=== PATIENT | male | born 1970 | race Two or more races ===

== ENCOUNTER 2024-11-06 09:57 | Outpatient (AMB) | payer OTHER, SELFPAY ==
--- NOTE | 2024-11-06 10:12 | MHC.PC.OV ---
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: No Accompanied by: Self / Same As Patient Allergies No Known Allergies Allergy (Verified 11/06/24 11:18) Medication List - Last Reconciled 11/06/24 by GISSELLE Dewitt dulaglutide (Trulicity) 0.75 mg subcut QWEEK glimepiride 4 mg PO DAILY metformin 1,000 mg PO BID sildenafil (Viagra) 100 mg PO DAILY PRN Tobacco use date assessed: 11/06/24 Dental Screening Dental Screen Date: 11/06/24 Did you have a dental visit in the last 12 months?: Yes Did you have a dental problem in the last 6 months where you did not have access to dental care?: No Was dental information given to patient?: Patient has dentist HPI [facility] care HPI Details Patient is presenting to [facility]. Accompanied by girlfriend Krupa Luis Manuel, who interpreted for the patient, per his request. Previous PCP: Thiago Freeman, [facility] in [place] Last visit: 02/2024 Last PE:11/2023 Specialist: no OBGYN:n/a Past medical history: DM, erectile dysfunction Medications: Family HX: mother DM type 1, uncle DM, father DM, sister DM Problem: The patient is a 54-year-old male presenting to [facility]. Patient reports that his prior healthcare facility no longer accept his insurance. He is here with complaints of hypertension, diabetes mellitus, and hand pain and numbness. Hypertension has been noted primarily during medical visits, with blood pressure readings reaching 150/90 mmHg during this visit. The patient does not monitor blood pressure at home, and previous readings have been inconsistent, with a prior reading of 170/90 mmHg. The patient has a history of Type 2 Diabetes Mellitus, with a recent blood glucose level of 215 mg/dL and an A1c of 7.7%. He experiences diarrhea with metformin, impacting his work, and has been switched to an extended-release formulation. The patient reports hand pain and numbness, occurring approximately three times a week, which started about a year and a half ago. The symptoms include pain and inability to move the hands, which comes and goes without swelling. Muscle cramps have been reported, affecting both legs intermittently, and have been ongoing for a long time. The patient has been advised to increase hydration and start magnesium supplementation. Erectile dysfunction has been noted despite the use of sildenafil, and further evaluation of blood sugar control is planned. The patient also has significant earwax buildup in the left ear, not affecting hearing, and has been advised on ear cleaning techniques with the debrox ear cleaning kit. [facility] Medical History (Updated 11/06/24 @ 22:04 by GISSELLE Dewitt) Erectile dysfunction Diabetes mellitus Family History Mother Diabetes mellitus Maternal Uncle Diabetes mellitus Father Diabetes mellitus Sister Diabetes mellitus Other Diabetic acidosis, type I Social History Household Members: None Both parents involved: No Caregiver staying overnight: No Housing: Apartment Are you a primary managed care coordinator to a significant other at home: No Do you presently have visiting nurse or other home services: No Unable to assess alcohol history related to: Unable to respond Alcohol intake: former Patient Tobacco Use Status: Never used Tobacco e-Cigarette/Vaping Use: Never Used Second Hand Smoke Exposure: No service: No Current occupational status: employed Questionnaire PHQ-9 Over the last 2 weeks, how often have you been bothered by any of the following problems? 1. Little interest or pleasure in doing things: nearly every day 2. Feeling down, depressed, or hopeless: nearly every day 3. Trouble falling or staying asleep, or sleeping too much: nearly every day 4. Feeling tired or having little energy: several days 5. Poor appetite or overeating: several days 6. Feeling bad about yourself - or that you are a failure or have let yourself or your family down: not at all 7. Trouble concentrating on things, such as reading the newspaper or watching television: several days 8. Moving or speaking so slowly that other people could have noticed. Or the opposite - being so fidgety or restless that you have been moving around a lot more than usual: not at all 9. Thoughts that you would be better off or of hurting yourself in some way: not at all Total score: 12 Depression Screening Interpretation: Positive Depression Screening Done: Yes 64994 - PHQ-9 Billing: Yes Source: Developed by Drs. Manuel Ross, Becki Zhou, Ricky Bernstein and colleagues, with an educational sheri from [employer]. Thrive Questionnaire Date Thrive assessed: 11/06/24 I am a: Patient What is your living situation today?: I do not have a steady places to live I choose not to answer this question Within the past 12 months, did the food you bought not last and you didn't have the money to get more?: Often true Within the past 12 months, did you worry whether your food would run out before you got money to buy more?: I choose not to answer this question Do you have trouble paying for medicines?: No Do you have trouble getting transportation to medical appointments?: No Do you have trouble paying your heating and electricity bill?: No Do you have trouble taking care of your child, family member or friend?: I choose not to answer this question Do you have trouble with day-to-day activities such as bathing, preparing meals, shopping, managing finances, etc.?: No Are you currently unemployed and looking for a job?: No Are you interested in more education?: No Please select the resources that you would like help with: Housing/Penitentiary Currently or been in a relationship where the following occur: No concerns reported THRIVE Score: 2 GEORGES-7 AMB Questionnaire GEORGES-7 Date GEORGES - 7 assessed: 11/06/24 Source: Developed by Drs. Manuel Ross, Becki Zhou, Ricky Bernstein and colleagues, with an educational sheri from [employer]. Review of Systems Const Denies headache(s) and Reports lethargy Eyes Denies loss of vision ENT Denies vertigo, Denies dizziness, Denies headache(s) and Denies sore throat Card Denies chest pain, Denies leg edema and Denies lightheadedness Resp Denies cough, Denies hemoptysis and Denies wheezing GI Denies abdominal pain, Denies melena, Denies constipation, Denies diarrhea and Denies vomiting Reports change in libido, Denies dysuria, Denies urinary frequency and Denies urinary urgency Musc Denies arthralgias, Denies joint swelling, Reports muscle cramps (Both lower legs but not at the same time), Reports muscle weakness (Intermittent bilateral hands), Reports numbness (Hands about 3 times a week), Denies tingling and Reports other (Pain in his hands about 3 times a week) Skin/Breast Reports dry skin, Denies lesions and Denies rash Neuro Denies Abnormal speech present, Denies behavioral changes, Denies vertigo, Denies dizziness, Denies headache(s), Denies loss of vision, Denies memory loss, Reports numbness (Hands about 3 times a week) and Denies tingling Psych Denies anxiety, Denies behavioral changes, Reports change in libido, Denies depression, Denies memory loss and Denies panic attacks Endo Reports change in libido Brad/Lymph Denies easy bleeding and Denies easy bruising Aller/Immun Denies wheezing Physical exam (Primary Care) Vital Signs: Last Vital Signs Pulse 83 11/06/24 10:36 BP 150/90 H 11/06/24 11:20 Pulse Ox 98 11/06/24 10:36 Oxygen Delivery Method Room Air 11/06/24 10:36 BMI result Body Mass Index 26.6 Tobacco/Smoking Status: Tobacco use Status Tobacco use date assessed 11/06/24 11/06/24 10:49 Patient Tobacco Use Status Never used Tobacco 11/06/24 10:49 e-Cigarette/Vaping Use Never Used 11/06/24 10:49 PHQ-9: PHQ-9 Score PHQ-9: Total score 12 11/06/24 18:39 Depression Screening Interpretation: Positive Thrive Assessment: Date of Thrive Assessment Date Thrive assessed 11/06/24 11/06/24 10:15 Currently or been in a relationship where the following occur: No concerns reported Const General: healthy appearing, no acute distress, alert and awake Nutritional Appearance: well nourished Orientation/consciousness: oriented to person, oriented to place and oriented to time HENMT Ears: TM's normal bilaterally General nose exam: Normal nasal mucous membranes and turbinates present Eyes Conjunctivae: conjunctivae normal Sclerae: sclerae normal Pupils: Equal, round and reactive pupils present Neck Neck: Yes no lymphadenopathy and Yes no JVD Thyroid: Thyroid normal Carotids: no bruits Resp Effort & Inspection: normal respiratory effort and not tachypneic Auscultation: no crackles, no rales, no rhonchi and no wheezes Cardio Rate: regular rate Rhythm: regular rhythm Heart sounds: S1 normal heart sound present, S2 normal heart sound present, no murmurs and normal S1 and S2 GI Palpation (GI): Soft to palpation and nontender Auscultation: normal bowel sounds General: Yes no CVA tenderness Back/Spine/Pelvis Back: no CVA tenderness Skin General skin exam: no rashes or lesions noted and dry skin Neuro General: oriented to person, oriented to place and oriented to time Cranial nerves: Yes Equal, round and reactive pupils present Speech: No Abnormal speech present Gait exam (Neuro): Normal gait present Motor exam (neuro): no tremor noted Extrem Right upper extremity: full ROM Left upper extremity: full ROM Right lower extremity: full ROM; no edema Left lower extremity: full ROM; no edema Psych Mental Status: mental status grossly normal Speech and movement: Normal speech and movement present Affect: normal affect Attitude: cooperative Thought process: Normal thought process present Results AMB Hemoglobin A1c AMB Hemoglobin A1c 7.7 % Last Edit by MILTON Johnson on 11/06/24 11:54 Results Reviewed Results Reviewed: Laboratory Last Values Hgb A1c (Clinic) 7.7 % (4.0-6.0) H 11/06/24 11:53 Coding Level of Care Code New Pt Level 4 (97533) Diagnoses Type 2 diabetes mellitus with hyperglycemia, without long-term current use of insulin E11.65 Diabetes mellitus type: type 2 Diabetes mellitus custodial insulin use: without termite treater helper use Diabetes mellitus complication status: with hyperglycemia Erectile dysfunction, unspecified erectile dysfunction type N52.9 Erectile dysfunction type: unspecified Muscle cramps R25.2 Fatigue, unspecified type R53.83 Fatigue type: unspecified Elevated blood pressure reading in office with diagnosis of hypertension I10 Excessive cerumen in left ear canal H61.22 Laterality: left Additional Codes PHQ-9 - 80817 - PHQ-9 Billing: Yes ([id number]) Time Spent (min) 40 Assessment & Plan Assessment & Plan (1) Diabetes mellitus: Code(s): E11.9 - Type 2 diabetes mellitus without complications Category: Medical Qualifiers: Diabetes mellitus type: type 2 Diabetes mellitus custodial insulin use: without termite treater helper use Diabetes mellitus complication status: with hyperglycemia Qualified Code(s): E11.65 - Type 2 diabetes mellitus with hyperglycemia Plan: A1c 7.7%, goal less than 7% Reinforced low sugar/carbohydrate diet Reports constipation for metformin Order change the metformin to extended release 1000 mg 2 times a day Continue Trulicity 0.75 mg q.week, continue glimepiride 4 mg daily We will monitor monitor fasting glucose and a1c (2) Erectile dysfunction: Code(s): N52.9 - Male erectile dysfunction, unspecified Category: Medical Qualifiers: Erectile dysfunction type: unspecified Qualified Code(s): N52.9 - Male erectile dysfunction, unspecified Plan: reports still having trouble with his erectile dysfunction despite taking sildenafil 100mg daily PRN will order labs to further evaluate (3) Muscle cramps: Code(s): R25.2 - Cramp and spasm Category: Medical Plan: Reports alternating lower legs muscle cramps encouraged increasing fluids, start magnesium oxide 400mg at HS Will order labs to evaluate (4) Fatigue: Code(s): R53.83 - Other fatigue Category: Medical Qualifiers: Fatigue type: unspecified Qualified Code(s): R53.83 - Other fatigue Plan: explain to patient that he could more than one reasons why he is feeling tired cbc, cmp, tsh, tosterosterone ordered, will advise (5) Elevated blood pressure reading in office with diagnosis of hypertension: Code(s): I10 - Essential (primary) hypertension Category: Medical Plan: elevated blood pressure reports that his blood pressure is only high in the doctor's office denies to checking blood pressure at home, or having a machine to check is blood pressure will have to the patient return to get his blood pressure checked by nurse encouraged the patient to purchase a blood pressure machine and start checking blood pressure at home (6) Excessive cerumen in ear canal: Code(s): H61.20 - Impacted cerumen, unspecified ear Category: Medical Qualifiers: Laterality: left Qualified Code(s): H61.22 - Impacted cerumen, left ear Plan: encouraged to patient to purchase the debrox kit explained to the process to him and his girlfriend Orders: Orders Complete Blood Count Auto Diff Today E11.9 - Type 2 diabetes mellitus without complications, R25.2 - Cramp and spasm, Z00.00 - Encounter for general adult medical examination without abnormal findings Comprehensive [place]. Panel Fast Today E11.9 - Type 2 diabetes mellitus without complications, R25.2 - Cramp and spasm, Z00.00 - Encounter for general adult medical examination without abnormal findings UA CC w/rflx Micro + Cult Today E11.9 - Type 2 diabetes mellitus without complications, R25.2 - Cramp and spasm, Z00.00 - Encounter for general adult medical examination without abnormal findings Uric Acid Today E11.9 - Type 2 diabetes mellitus without complications, R25.2 - Cramp and spasm, Z00.00 - Encounter for general adult medical examination without abnormal findings Vitamin B12 and Folate Today E11.9 - Type 2 diabetes mellitus without complications, R25.2 - Cramp and spasm, Z00.00 - Encounter for general adult medical examination without abnormal findings Vitamin D 25-OH Total Today E11.9 - Type 2 diabetes mellitus without complications, R25.2 - Cramp and spasm, Z00.00 - Encounter for general adult medical examination without abnormal findings CRP High Sensitivity Today E11.9 - Type 2 diabetes mellitus without complications, R25.2 - Cramp and spasm, Z00.00 - Encounter for general adult medical examination without abnormal findings Lipid Panel Today E11.9 - Type 2 diabetes mellitus without complications, R25.2 - Cramp and spasm, Z00.00 - Encounter for general adult medical examination without abnormal findings TSH reflex Free T4 Today E11.9 - Type 2 diabetes mellitus without complications, R25.2 - Cramp and spasm, Z00.00 - Encounter for general adult medical examination without abnormal findings Magnesium Today E11.9 - Type 2 diabetes mellitus without complications, R25.2 - Cramp and spasm, Z00.00 - Encounter for general adult medical examination without abnormal findings Erythrocyte Sedimentation Rate Today E11.9 - Type 2 diabetes mellitus without complications, R25.2 - Cramp and spasm, Z00.00 - Encounter for general adult medical examination without abnormal findings Testosterone, Free/Total Today N52.9 - Male erectile dysfunction, unspecified, R53.83 - Other fatigue AMB Hemoglobin A1c Today Z13.9 - Encounter for screening, unspecified Medications: New metformin ER (Fortamet) 1,000 mg PO BID 60 tabs 3RF sildenafil (Viagra) administer 30 minutes to 4 hours before activity 100 mg PO DAILY PRN 20 tabs 2RF erectile dysfunction dulaglutide (Trulicity) 0.75 mg (0.5 mL) subcut QWEEK 2 mL 0RF glimepiride 4 mg PO DAILY 90 tabs 3RF
[2024-11-06 10:36] VITALS: BP 176/90; PULSE 83; O2SAT 98; BMI 26.6
[2024-11-06 11:20] VITALS: BP 150/90
== END 2024-11-06 11:59 | disposition home or self-care (01) ==
LOC: HO.HMCH 09:58
DX: E11.65 Type 2 diabetes mellitus with hyperglycemia (principal); N52.9 Male erectile dysfunction, unspecified; R25.2 Cramp and spasm; R53.83 Other fatigue; I10 Essential (primary) hypertension; H61.22 Impacted cerumen, left ear; Z13.9 Encounter for screening, unspecified

== ENCOUNTER → 2024-11-06 09:57 | Outpatient (BNVA) | payer OTHER, SELFPAY | DX: E11.65 Type 2 diabetes mellitus with hyperglycemia (principal); N52.9 Male erectile dysfunction, unspecified; E11.9 Type 2 diabetes mellitus without complications; I10 Essential (primary) hypertension; R25.2 Cramp and spasm; R53.83 Other fatigue; H61.22 Impacted cerumen, left ear | CPT/HCPCS: 83036; 96127; 99202 ==

== ENCOUNTER 2024-12-17 13:43 | Outpatient (AMB) | payer OTHER, SELFPAY ==
--- NOTE | 2024-12-17 13:51 | A.OFFPC_ITS ---
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: No Accompanied by: Self / Same As Patient Allergies No Known Allergies Allergy (Verified 12/17/24 14:20) Medication List - Last Reconciled 12/17/24 by GISSELLE Dewitt dulaglutide (Trulicity) 0.75 mg (0.5 mL) subcut QWEEK glimepiride 4 mg PO DAILY lisinopril 5 mg PO DAILY metformin ER (Fortamet) 1,000 mg PO BID metformin ER (Glucophage XR) 1,000 mg (2 x 500 mg) PO DAILY sildenafil (Viagra) 100 mg PO DAILY PRN Tobacco use date assessed: 12/17/24 Dental Screening Dental Screen Date: 12/17/24 Did you have a dental visit in the last 12 months?: No Did you have a dental problem in the last 6 months where you did not have access to dental care?: No Was dental information given to patient?: No HPI Annual exam HPI Details Dentist:Reports about 2 years-reports that all of his teeth needs to be removed, per his last dental visit Eye: Reports that he cannot see well out of his right eye and it gets watery all the time-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 The patient has a history of diabetes mellitus, managed with a low sugar diet and regular physical activity at work, involving significant walking. He has not had an eye exam in over five years, despite experiencing persistent watering in the right eye, prompting a referral to an front load trash truck driver. Hypertension is currently treated with lisinopril, but the patient reports headaches associated with its use. The headaches occur after taking the medication and persist for a while, although they are not severe. A switch to losartan is planned to alleviate this side effect. The patient also reports muscle cramps, which have persisted despite magnesium supplementation. Further evaluation with lab tests is planned to identify any underlying causes. The patient has not complete his preordered labs for the this visit. [facility] Medical History Erectile dysfunction Diabetes mellitus Family History Mother Diabetes mellitus Maternal Uncle Diabetes mellitus Father Diabetes mellitus Sister Diabetes mellitus Other Diabetic acidosis, type I Social History Household Members: None Both parents involved: No Caregiver staying overnight: No Housing: Apartment Are you a primary health care manager to a significant other at home: No Do you presently have visiting nurse or other home services: No Unable to assess alcohol history related to: Unable to respond Alcohol intake: former Patient Tobacco Use Status: Never used Tobacco e-Cigarette/Vaping Use: Never Used Second Hand Smoke Exposure: No service: No Current occupational status: employed Cognitive needs: No Hearing needs: No Vision needs: No Questionnaire PHQ-9 Over the last 2 weeks, how often have you been bothered by any of the following problems? 1. Little interest or pleasure in doing things: nearly every day 2. Feeling down, depressed, or hopeless: nearly every day 3. Trouble falling or staying asleep, or sleeping too much: nearly every day 4. Feeling tired or having little energy: several days 5. Poor appetite or overeating: several days 6. Feeling bad about yourself - or that you are a failure or have let yourself or your family down: not at all 7. Trouble concentrating on things, such as reading the newspaper or watching television: several days 8. Moving or speaking so slowly that other people could have noticed. Or the opposite - being so fidgety or restless that you have been moving around a lot more than usual: not at all 9. Thoughts that you would be better off or of hurting yourself in some way: not at all Total score: 12 Depression Screening Interpretation: Positive Depression Screening Done: Yes Source: Developed by Drs. Manuel Ross, Becki Zhou, Ricky Bernstein and colleagues, with an educational sheri from [employer]. Thrive Questionnaire Date Thrive assessed: 12/17/24 I am a: Patient What is your living situation today?: I do not have a steady places to live I choose not to answer this question Within the past 12 months, did the food you bought not last and you didn't have the money to get more?: Often true Within the past 12 months, did you worry whether your food would run out before you got money to buy more?: I choose not to answer this question Do you have trouble paying for medicines?: No Do you have trouble getting transportation to medical appointments?: No Do you have trouble paying your heating and electricity bill?: No Do you have trouble taking care of your child, family member or friend?: I choose not to answer this question Do you have trouble with day-to-day activities such as bathing, preparing meals, shopping, managing finances, etc.?: No Are you currently unemployed and looking for a job?: No Are you interested in more education?: No Please select the resources that you would like help with: Housing/Long-Term Currently or been in a relationship where the following occur: No concerns reported THRIVE Score: 2 GEORGES-7 AMB Questionnaire GEORGES-7 Date GEORGES - 7 assessed: 12/17/24 Source: Developed by Drs. Manuel Ross, Becki Zhou, Ricky Bernstein and colleagues, with an educational sheri from [employer]. Review of Systems Const Reports headache(s) (mild headache associates with lisinopril) Eyes Reports change in vision (decreased vision in right eye, constantly watery) and Denies loss of vision ENT Denies vertigo, Denies dizziness, Reports headache(s) (mild headache associates with lisinopril) and Denies sore throat Card Denies chest pain, Denies leg edema and Denies lightheadedness Resp Denies cough, Denies hemoptysis and Denies wheezing GI Denies abdominal pain, Denies melena, Denies constipation, Denies diarrhea and Denies vomiting Denies dysuria, Denies urinary frequency and Denies urinary urgency Musc Denies arthralgias, Denies joint swelling, Reports muscle cramps (bilateral legs), Denies numbness and Denies tingling Skin/Breast Denies lesions and Denies rash Neuro Denies Abnormal speech present, Denies behavioral changes, Denies vertigo, Denies dizziness, Reports headache(s) (mild headache associates with lisinopril), Denies loss of vision, Denies memory loss, Denies numbness and Denies tingling Psych Denies anxiety, Denies behavioral changes, Denies depression, Denies memory loss and Denies panic attacks Brad/Lymph Denies easy bleeding and Denies easy bruising Aller/Immun Denies wheezing Physical exam (Primary Care) Vital Signs: Last Vital Signs Temp 97.3 F 12/17/24 13:53 Pulse 85 12/17/24 13:53 Resp 18 12/17/24 13:53 BP 129/66 12/17/24 13:53 Pulse Ox 97 12/17/24 13:53 Oxygen Delivery Method Room Air 12/17/24 13:53 BMI result Body Mass Index 26.8 Tobacco/Smoking Status: Tobacco use Status Tobacco use date assessed 12/17/24 12/17/24 14:00 Patient Tobacco Use Status Never used Tobacco 12/17/24 14:00 e-Cigarette/Vaping Use Never Used 12/17/24 14:00 PHQ-9: PHQ-9 Score PHQ-9: Total score 12 12/17/24 14:27 Depression Screening Interpretation: Positive Thrive Assessment: Date of Thrive Assessment Date Thrive assessed 12/17/24 12/17/24 14:00 Currently or been in a relationship where the following occur: No concerns reported Const General: healthy appearing, no acute distress, alert and awake Nutritional Appearance: well nourished Orientation/consciousness: oriented to person, oriented to place and oriented to time HENNC Ears: Abnormal EAC present excessive cerumen bilateral General nose exam: Normal nasal mucous membranes and turbinates present Eyes Conjunctivae: conjunctivae normal Sclerae: sclerae normal Pupils: Equal, round and reactive pupils present Neck Neck: Yes no lymphadenopathy and Yes no JVD Thyroid: Thyroid normal Carotids: no bruits Resp Effort & Inspection: normal respiratory effort and not tachypneic Auscultation: no crackles, no rales, no rhonchi and no wheezes Cardio Rate: regular rate Rhythm: regular rhythm Heart sounds: no murmurs and normal S1 and S2 GI Palpation (GI): Soft to palpation, nontender, no hepatomegaly and no splenomegaly Auscultation: normal bowel sounds Skin General skin exam: no rashes or lesions noted and dry skin Neuro General: oriented to person, oriented to place and oriented to time Cranial nerves: Yes Equal, round and reactive pupils present Speech: No Abnormal speech present Gait exam (Neuro): Normal gait present Motor exam (neuro): no tremor noted Deep tendon reflexes (DTR's): Right triceps reflex intensity grade: 2+, Left triceps reflex intensity grade: 2+, Rt Biceps (C5, C6): 2+, Left biceps reflex intensity grade: 2+, Right brachioradialis reflex intensity grade: 2+, Left brachioradialis reflex intensity grade: 2+, Right patellar reflex intensity grade: 2+ and Left patellar reflex intensity grade: 2+ Extrem Right upper extremity: full ROM Left upper extremity: full ROM Right lower extremity: full ROM; no edema Left lower extremity: full ROM; no edema Psych Mental Status: mental status grossly normal Speech and movement: Normal speech and movement present Affect: normal affect Attitude: cooperative Thought process: Normal thought process present Coding Level of Care Code Est Pt Prev Care 40-64y(49660) Diagnoses Annual physical exam Z00.00 Elevated blood pressure reading in office with diagnosis of hypertension I10 Type 2 diabetes mellitus with hyperglycemia, without long-term current use of insulin E11.65 Diabetes mellitus type: type 2 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: without truck terminal manager use Diabetes mellitus complication status: with hyperglycemia Excessive cerumen in left ear canal H61.22 Laterality: left Erectile dysfunction, unspecified erectile dysfunction type N52.9 Erectile dysfunction type: unspecified Muscle cramps R25.2 Fatigue, unspecified type R53.83 Fatigue type: unspecified Decreased vision of right eye H54.61 Colon cancer screening Z12.11 Time Spent (min) 41 Assessment & Plan Assessment & Plan (1) Annual physical exam: Code(s): Z00.00 - Encounter for general adult medical examination without abnormal findings Category: Medical Plan: Preventative guidelines reviewed with the patient. Patient is due for colonoscopy referral was placed to gastroenterology. Patient has diabetes and is having difficulty seeing out of his right eye an ophthalmology referral was placed. He was encouraged to complete preordered labs that was ordered on his previous visit to further evaluate his condition. (2) Elevated blood pressure reading in office with diagnosis of hypertension: Code(s): I10 - Essential (primary) hypertension Category: Medical Plan: blood pressure 128/66-goal systolic less than 130 mm hg he was started on lisinopril 5 mg at his previous visit, but reports that this has been causing him headaches, though mild, it has been bothersome. This was switched to Losartan 50 mg daily. Patient to return in 4 weeks for bp check by nurse. Reinforced low-salt diet. 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: without intermediate use Diabetes mellitus complication status: with hyperglycemia Qualified Code(s): E11.65 - Type 2 diabetes mellitus with hyperglycemia Plan: A1c 7.7%, goal less than 7% Reinforced low sugar/carbohydrate diet Reports constipation for metformin Order change the metformin to extended release 1000 mg 2 times a day Continue Trulicity 0.75 mg q.week, continue glimepiride 4 mg daily We will monitor monitor fasting glucose and a1c (4) Excessive cerumen in ear canal: Code(s): H61.20 - Impacted cerumen, unspecified ear Category: Medical Qualifiers: Laterality: left Qualified Code(s): H61.22 - Impacted cerumen, left ear Plan: encouraged to patient to purchase the debrox kit explained to the process to him and his girlfriend (5) Erectile dysfunction: Code(s): N52.9 - Male erectile dysfunction, unspecified Category: Medical Qualifiers: Erectile dysfunction type: unspecified Qualified Code(s): N52.9 - Male erectile dysfunction, unspecified Plan: reports still having trouble with his erectile dysfunction despite taking sildenafil 100mg daily PRN will order labs to further evaluate (6) Muscle cramps: Code(s): R25.2 - Cramp and spasm Category: Medical Plan: Reports alternating lower legs muscle cramps encouraged increasing fluids, started magnesium oxide 400mg at HS. Reports that he is still getting the muscle cramps. He has not complete the labs that were preordered on previous visit to further evaluate this. Encouraged the patient to go get his blood work done as soon as possible. (7) Fatigue: Code(s): R53.83 - Other fatigue Category: Medical Qualifiers: Fatigue type: unspecified Qualified Code(s): R53.83 - Other fatigue Plan: explain to patient that he could more than one reasons why he is feeling tired cbc, cmp, tsh, tosterosterone ordered, will advise (8) Decreased vision of right eye: Code(s): H54.61 - Unqualified visual loss, right eye, normal vision left eye Category: Medical Plan: Ophthalmology referral placed (9) Colon cancer screening: Code(s): Z12.11 - Encounter for screening for malignant neoplasm of colon Category: Medical Plan: Referral placed to gastroenterology Orders: Referrals Gastroenterology Referral Z12.11 - Encounter for screening for malignant neoplasm of colon Ophthalmology Referral H54.61 - Unqualified visual loss, right eye, normal vision left eye, Z12.11 - Encounter for screening for malignant neoplasm of colon Medications: New losartan 50 mg PO DAILY 30 tabs 3RF Discontinued lisinopril Discontinued Reason: Doctor's Order 5 mg PO DAILY 30 tabs 3RF
[2024-12-17 13:53] VITALS: BP 129/66; PULSE 85; RESP 18; TEMP 36.3; O2SAT 97; BMI 26.8
== END 2024-12-17 14:48 | disposition home or self-care (01) ==
LOC: HO.HMCH 13:44
DX: Z00.00 Encounter for general adult medical examination without abnormal findings (principal); I10 Essential (primary) hypertension; E11.65 Type 2 diabetes mellitus with hyperglycemia; H61.22 Impacted cerumen, left ear; N52.9 Male erectile dysfunction, unspecified; R25.2 Cramp and spasm; R53.83 Other fatigue; H54.61 Unqualified visual loss, right eye, normal vision left eye; Z12.11 Encounter for screening for malignant neoplasm of colon

== ENCOUNTER → 2024-12-17 13:43 | Outpatient (BNVA) | payer OTHER, SELFPAY | DX: Z00.00 Encounter for general adult medical examination without abnormal findings (principal); I10 Essential (primary) hypertension; E11.65 Type 2 diabetes mellitus with hyperglycemia; R25.2 Cramp and spasm; N52.9 Male erectile dysfunction, unspecified; R53.83 Other fatigue; H54.61 Unqualified visual loss, right eye, normal vision left eye | CPT/HCPCS: 99396 ==

== ENCOUNTER 2025-01-13 10:40 | Outpatient (REF) | payer OTHER, SELFPAY ==
[2025-01-13 11:11] LABS: MANUAL DIFF FLAG NO
[2025-01-13 11:41] LABS: Hematocrit 41.9 % (42.0-52.0); Hemoglobin 14.7 g/dl (14.0-18.0); Imm Gran Abs Auto 0.03 X10*3/uL (0.00-0.03); Imm Gran Pct Auto 0.3 % (0.0-0.4); Lymphocytes Absolute Auto 2.6 X10*3/uL (1.2-4.9); Mean Corpuscular HGB Conc 35.1 g/dl (31.0-36.0); Mean Corpuscular Hemoglobin 28.4 pg (27.0-33.0); Mean Corpuscular Volume 80.9 fL (80.0-98.0); NRBC Abs Auto 0.000 X10*3/uL (0.0-0.012); NRBC Pct Auto 0.0 /100WBC (0.0-0.2); Platelet Count 163 X10*3/uL (160-400); Red Blood Count 5.18 X10*6/uL (4.60-5.80); White Blood Count 8.8 X10*3/uL (4.8-10.8)
[2025-01-13 11:59] LABS: Appearance Urine Clear; Glucose Urine UA 250 mg/dL (Negative); PH 5.5 (5.0-9.0); Specific Gravity - Urine >= 1.030 (1.005-1.025)
[2025-01-13 12:29] LABS: Alanine Aminotransferase 32 U/L (0-40); Albumin Level 4.3 g/dL (3.5-5.0); Alkaline Phosphatase 114 U/L (39-117); Anion Gap 11 (12-20); Aspartate Amino Transferase 23 U/L (5-37); Blood Urea Nitrogen 20 mg/dL (9-16); Calcium 9.0 mg/dL (8.4-10.2); Carbon Dioxide 26 mmol/L (22-29); Chloride 110 mmol/L (96-108); Cholesterol 142 mg/dL (<200); Estimated Glomerular Filt Rate > 60; HDL Cholesterol 29 mg/dL (>40); Magnesium 2.1 mg/dL (1.6-2.6); Potassium 4.5 mmol/L (3.3-5.1); Sodium 142 mmol/L (135-145); Total Protein 7.1 g/dL (6.5-8.0); Triglycerides 94 mg/dL (<150); Uric Acid 5.6 mg/dL (3.4-7.0)
[2025-01-13 12:53] LABS: Folate 12.1 ng/mL (> or = 4.0); Vitamin B12 497 pg/mL (200-900)
[2025-01-20 22:53] LABS: Testosterone, Free 77.2 pg/mL (35.0-155.0)
== END 2025-01-13 10:41 | disposition home or self-care (01) ==
LOC: HO.LAB 10:40
DX: Z00.00 Encounter for general adult medical examination without abnormal findings (principal); E11.9 Type 2 diabetes mellitus without complications; N52.9 Male erectile dysfunction, unspecified; R25.2 Cramp and spasm; R53.83 Other fatigue
CPT/HCPCS: 36415; 80053; 80061; 81003; 82306; 82607; 82746; 83735; 84402; 84403; 84443; 84550; 85025; 85652; 86141

== ENCOUNTER → 2025-01-21 13:03 | Outpatient (BNVA) | payer OTHER, SELFPAY | DX: Z01.30 Encounter for examination of blood pressure without abnormal findings (principal) | CPT/HCPCS: 99211 ==

== ENCOUNTER 2025-02-12 10:16 | Outpatient (AMB) | payer OTHER, SELFPAY ==
[2025-02-12 10:20] VITALS: BP 150/98; PULSE 92; TEMP 36.1; O2SAT 98; BMI 26.7
--- NOTE | 2025-02-12 10:20 | A.OFFPC_ITS ---
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 Accompanied by: Krupa - A friend Allergies No Known Allergies Allergy (Verified 02/12/25 10:35) Medication List - Last Reconciled 02/12/25 by Rosanna Ponce PA-C dulaglutide (Trulicity) 0.75 mg (0.5 mL) subcut QWEEK glimepiride 4 mg PO DAILY losartan 50 mg PO DAILY metformin ER (Glucophage XR) 1,000 mg (2 x 500 mg) PO DAILY sildenafil (Viagra) 100 mg PO DAILY PRN Tobacco use date assessed: 02/12/25 Dental Screening Dental Screen Date: 02/12/25 Did you have a dental visit in the last 12 months?: No Did you have a dental problem in the last 6 months where you did not have access to dental care?: No Was dental information given to patient?: No HPI Ear Irrigation 2 HPI0 Details 54 year old male coming in for ear flush ing. Patient tells us today he is feeling generally well - no concerns or complaints in the ears. [facility] Medical History Erectile dysfunction Diabetes mellitus Family History Mother Diabetes mellitus Maternal Uncle Diabetes mellitus Father Diabetes mellitus Sister Diabetes mellitus Other Diabetic acidosis, type I Social History Household Members: None Both parents involved: No Caregiver staying overnight: No Housing: Apartment Are you a primary aged or disabled carer to a significant other at home: No Do you presently have visiting nurse or other home services: No Alcohol intake: former Patient Tobacco Use Status: Never used Tobacco e-Cigarette/Vaping Use: Never Used Second Hand Smoke Exposure: No service: No Current occupational status: employed Cognitive needs: No Hearing needs: No Vision needs: No Questionnaire PHQ-9 Over the last 2 weeks, how often have you been bothered by any of the following problems? 1. Little interest or pleasure in doing things: nearly every day 2. Feeling down, depressed, or hopeless: nearly every day 3. Trouble falling or staying asleep, or sleeping too much: nearly every day 4. Feeling tired or having little energy: several days 5. Poor appetite or overeating: several days 6. Feeling bad about yourself - or that you are a failure or have let yourself or your family down: not at all 7. Trouble concentrating on things, such as reading the newspaper or watching television: several days 8. Moving or speaking so slowly that other people could have noticed. Or the opposite - being so fidgety or restless that you have been moving around a lot more than usual: not at all 9. Thoughts that you would be better off or of hurting yourself in some way: not at all Total score: 12 Depression Screening Interpretation: Positive Depression Screening Done: Yes Source: Developed by Drs. Manuel Ross, Becki Zhou, Ricky Bernstein and colleagues, with an educational sheri from [employer]. Thrive Questionnaire Date Thrive assessed: 02/12/25 I am a: Patient What is your living situation today?: I do not have a steady places to live I choose not to answer this question Within the past 12 months, did the food you bought not last and you didn't have the money to get more?: Often true Within the past 12 months, did you worry whether your food would run out before you got money to buy more?: I choose not to answer this question Do you have trouble paying for medicines?: No Do you have trouble getting transportation to medical appointments?: No Do you have trouble paying your heating and electricity bill?: No Do you have trouble taking care of your child, family member or friend?: I choose not to answer this question Do you have trouble with day-to-day activities such as bathing, preparing meals, shopping, managing finances, etc.?: No Are you currently unemployed and looking for a job?: No Are you interested in more education?: No Please select the resources that you would like help with: Housing/Custodial Currently or been in a relationship where the following occur: No concerns reported THRIVE Score: 2 AUDIT C Alcohol Use Questionnaire (AUDIT-C) 1. How often do you have a drink containing alcohol?: Never 3. How often do you have six or more drinks on one occasion?: Never Total Score: 0 GEORGES-7 AMB Questionnaire GOERGES-7 Date GEORGES - 7 assessed: 02/12/25 Feeling nervous, anxious, or on edge: 1 = Several days Not being able to stop or control worryin = Not at all Worrying too much about different things: 3 = Nearly every day Trouble relaxin = Nearly every day Being so restless that it is hard to sit still: 0 = Not at all Becoming easily annoyed or irritable: 0 = Not at all Feeling afraid as if something awful might happen: 0 = Not at all Total GEORGES-7 score (0-4 normal; 5-9 mild; 10-14 moderate; 15-21 severe): 7 Source: Developed by Drs. Manuel Ross, Becki Zhou, Ricky Bernstein and colleagues, with an educational sheri from [employer]. Review of Systems Eyes Reports no additional complaints ENT Reports no additional complaints, Denies otalgia and Denies tinnitus Card Reports no additional complaints Resp Reports no additional complaints Physical exam (Primary Care) Vital Signs: Last Vital Signs Temp 96.9 F 02/12/25 10:20 Pulse 92 02/12/25 10:20 BP 150/98 H 02/12/25 10:20 Pulse Ox 98 02/12/25 10:20 Oxygen Delivery Method Room Air 02/12/25 10:20 BMI result Body Mass Index 26.7 Tobacco/Smoking Status: Tobacco use Status Tobacco use date assessed 02/12/25 02/12/25 10:22 Patient Tobacco Use Status Never used Tobacco 02/12/25 10:22 e-Cigarette/Vaping Use Never Used 02/12/25 10:22 PHQ-9: PHQ-9 Score PHQ-9: Total score 12 02/12/25 10:35 Depression Screening Interpretation: Positive Thrive Assessment: Date of Thrive Assessment Date Thrive assessed 02/12/25 02/12/25 10:22 Currently or been in a relationship where the following occur: No concerns reported Const General: cooperative, healthy appearing, comfortable and no acute distress HENMT Head: Yes normocephalic Ears: hearing grossly normal bilaterally Outer ear/TM images: 2 1. large, firm, non tender, non erythematous polyp obscuring the TM and obstructing the EAC General nose exam: Normal external nose present Resp Effort & Inspection: normal respiratory effort Cardio Rate: regular rate Extrem General: Yes normal to inspection, Yes full ROM and No edema Psych Affect: normal affect Attitude: cooperative Insight: Good insight present (Psych) Judgement: Good judgement present (Psych) Office Procedures Cerumen Removal From which ear canal was the cerumen removed: bilateral Removal: cerumen loop/spoon Notes: patient tolerated procedure well and no complications [id number] Wax Removal by Spoon/Curette Coding Level of Care Code Est Pt Level 3 (27052) Diagnoses Excessive cerumen in left ear canal H61.22 Laterality: left Polyp of ear canal H61.899 CPT Codes Office Procedure - CPT: 05910-Osm Wax Removal by Spoon/Curette ([id number]) Assessment & Plan Assessment & Plan (1) Excessive cerumen in ear canal: Code(s): H61.20 - Impacted cerumen, unspecified ear Category: Medical Qualifiers: Laterality: left Qualified Code(s): H61.22 - Impacted cerumen, left ear Plan: Bilateral ears were attempts to be cleaned with lighted curette ear canals were unable to be successfully cleaned. Recommend patient use Debrox drops for 1 week consistently and returned to the office for ear cleaning. (2) Polyp of ear canal: Code(s): H61.899 - Other specified disorders of external ear, unspecified ear Category: Medical Plan: For polyp of the ear canal patient is not complaining of any symptoms at this time. He is requesting referral to ENT which was placed today. Plan This note was constructed using voice recognition software. While every effort has been made to ensure accuracy and ships equipment engineer, still areas may have been included sometimes these areas may affect the content or meeting of the given symptoms. Total time spent caring for the patient today was 20 minutes. This includes time spent before the visit reviewing the chart, time spent during the visit, and time spent after the visit and documentation. Orders: Referrals 2 Ear/Nose/Throat Referral H61.899 - Other specified disorders of external ear, unspecified ear
== END 2025-02-12 10:59 | disposition home or self-care (01) ==
LOC: HO.HMCH 10:17
DX: H61.891 Other specified disorders of right external ear (principal); H61.23 Impacted cerumen, bilateral

== ENCOUNTER → 2025-02-12 10:16 | Outpatient (BNVA) | payer OTHER, SELFPAY | DX: H61.22 Impacted cerumen, left ear (principal); H61.891 Other specified disorders of right external ear | CPT/HCPCS: 69210; 99212 ==

== ENCOUNTER 2025-03-19 13:12 | Outpatient (AMB) | payer OTHER, SELFPAY ==
[2025-03-19 13:41] VITALS: BP 104/76; PULSE 95; RESP 18; O2SAT 99; BMI 25.8
--- NOTE | 2025-03-19 13:41 | A.OFFPC_ITS ---
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 Accompanied by: Self / Same As Patient Allergies No Known Allergies Allergy (Verified 03/19/25 13:58) Medication List - Last Reconciled 03/19/25 by GISSELLE Dewitt dulaglutide (Trulicity) 0.75 mg (0.5 mL) subcut QWEEK glimepiride 4 mg PO DAILY losartan 50 mg PO DAILY metformin ER (Glucophage XR) 1,000 mg (2 x 500 mg) PO DAILY sildenafil (Viagra) 100 mg PO DAILY PRN Tobacco use date assessed: 03/19/25 Dental Screening Dental Screen Date: 03/19/25 Did you have a dental visit in the last 12 months?: No Did you have a dental problem in the last 6 months where you did not have access to dental care?: No Was dental information given to patient?: No HPI HPI Comments History of Present Illness Details The patient is a 54-year-old male presenting for a follow-up to review laboratory results and for chronic condition management. Regarding his diabetes, the patient's hemoglobin A1c is now 9.5%, which is an increase from 7.7% in October. He reports taking his metformin twice daily and his Trulicity injection, but he has been without his glimepiride medication for approximately one month. He also requires a refill for his Trulicity injections. Review of his lipid panel shows his good cholesterol (HDL) is low at 29, with a goal of being greater than 40. The patient reports he does not eat fish. Other laboratory findings include a low vitamin D level. His liver enzymes, testosterone, thyroid function, and urinalysis are all normal. The patient has a history of high blood pressure, but his reading today was 104/76 mmHg. He also requested a refill for Viagra for erectile dysfunction. Health Maintenance - Follow-up in 3 months is recommended f or lab review. - Blood work should be completed one wee k prior to the next appointment. - Discussion of diet included increasing fish intake to improve HDL, though the patient reports not eating fish. Social History - Diet: The patient reports he does not eat fish. Results - Hemoglobin A1c: 9.5%. - Vitamin D: Low. - HDL cholesterol: 29 mg/dL. - Liver enzymes: Good. - Testosterone: Good. - Thyroid: Good. - Urinalysis: Good. PFS Medical History Erectile dysfunction Diabetes mellitus Family History Mother Diabetes mellitus Maternal Uncle Diabetes mellitus Father Diabetes mellitus Sister Diabetes mellitus Other Diabetic acidosis, type I Social History Household Members: None Both parents involved: No Caregiver staying overnight: No Housing: Apartment Are you a primary caretaker grounds to a significant other at home: No Do you presently have visiting nurse or other home services: No Alcohol intake: former Patient Tobacco Use Status: Never used Tobacco e-Cigarette/Vaping Use: Never Used Second Hand Smoke Exposure: No service: No Current occupational status: employed Cognitive needs: No Hearing needs: No Vision needs: No Questionnaire PHQ-9 Over the last 2 weeks, how often have you been bothered by any of the following problems? Depression Screening Interpretation: Positive Depression Screening Done: Yes Source: Developed by Drs. Manuel Ross, Becki Zhou, Ricky Bernstein and colleagues, with an educational sheri from [employer]. Thrive Questionnaire Date Thrive assessed: 06/04/24 I am a: Patient What is your living situation today?: I do not have a steady places to live I choose not to answer this question Within the past 12 months, did the food you bought not last and you didn't have the money to get more?: Often true Within the past 12 months, did you worry whether your food would run out before you got money to buy more?: I choose not to answer this question Do you have trouble paying for medicines?: No Do you have trouble getting transportation to medical appointments?: No Do you have trouble paying your heating and electricity bill?: No Do you have trouble taking care of your child, family member or friend?: I choose not to answer this question Do you have trouble with day-to-day activities such as bathing, preparing meals, shopping, managing finances, etc.?: No Are you currently unemployed and looking for a job?: No Are you interested in more education?: No Please select the resources that you would like help with: Housing/Prison Currently or been in a relationship where the following occur: No concerns reported THRIVE Score: 2 GEORGES-7 AMB Questionnaire GEORGES-7 Date GEORGES - 7 assessed: 02/12/25 Source: Developed by Drs. Manuel Ross, Becki Zhou, Ricky Bernstein and colleagues, with an educational sheri from [employer]. Review of Systems Const Reports headache(s) (mild headache associates with lisinopril) Eyes Reports change in vision (decreased vision in right eye, constantly watery) and Denies loss of vision ENT Denies vertigo, Denies dizziness, Reports headache(s) (mild headache associates with lisinopril) and Denies sore throat Card Denies chest pain, Denies leg edema and Denies lightheadedness Resp Denies cough, Denies hemoptysis and Denies wheezing GI Denies abdominal pain, Denies melena, Denies constipation, Denies diarrhea and Denies vomiting Denies dysuria, Denies urinary frequency and Denies urinary urgency Musc Denies arthralgias, Denies joint swelling, Reports muscle cramps (bilateral legs), Denies numbness and Denies tingling Skin/Breast Denies lesions and Denies rash Neuro Denies Abnormal speech present, Denies behavioral changes, Denies vertigo, Denies dizziness, Reports headache(s) (mild headache associates with lisinopril), Denies loss of vision, Denies memory loss, Denies numbness and Denies tingling Psych Denies anxiety, Denies behavioral changes, Denies depression, Denies memory loss and Denies panic attacks Brad/Lymph Denies easy bleeding and Denies easy bruising Aller/Immun Denies wheezing Physical exam (Primary Care) Vital Signs: Last Vital Signs Pulse 95 03/19/25 13:41 Resp 18 03/19/25 13:41 BP 112/80 03/19/25 14:07 Pulse Ox 99 03/19/25 13:41 Oxygen Delivery Method Room Air 03/19/25 13:41 BMI result Body Mass Index 25.8 Tobacco/Smoking Status: Tobacco use Status Tobacco use date assessed 03/19/25 03/19/25 13:48 Patient Tobacco Use Status Never used Tobacco 03/19/25 13:48 e-Cigarette/Vaping Use Never Used 03/19/25 13:48 Depression Screening Interpretation: Positive Thrive Assessment: Date of Thrive Assessment Date Thrive assessed 06/04/24 03/19/25 13:48 Currently or been in a relationship where the following occur: No concerns reported Const General: cooperative, healthy appearing, comfortable and no acute distress Nutritional Appearance: well nourished Orientation/consciousness: oriented to person, oriented to place and oriented to time HENMT Head: Yes normocephalic Ears: hearing grossly normal bilaterally General nose exam: Normal external nose present Eyes Conjunctivae: conjunctivae normal Sclerae: sclerae normal Pupils: Equal, round and reactive pupils present Neck Neck: Yes no lymphadenopathy and Yes no JVD Thyroid: Thyroid normal Carotids: no bruits Resp Effort & Inspection: normal respiratory effort Auscultation: no crackles, no rales, no rhonchi and no wheezes Cardio Rate: regular rate Rhythm: regular rhythm Heart sounds: no murmurs and normal S1 and S2 GI Palpation (GI): Soft to palpation, nontender, no hepatomegaly and no splenomegaly Auscultation: normal bowel sounds Skin General skin exam: no rashes or lesions noted and dry skin Neuro General: oriented to person, oriented to place and oriented to time Cranial nerves: Yes Equal, round and reactive pupils present Speech: No Abnormal speech present Gait exam (Neuro): Normal gait present Motor exam (neuro): no tremor noted Extrem General: Yes normal to inspection, Yes full ROM and No edema Right upper extremity: full ROM Left upper extremity: full ROM Right lower extremity: full ROM; no edema Left lower extremity: full ROM; no edema Psych Mental Status: mental status grossly normal Speech and movement: Normal speech and movement present Affect: normal affect Attitude: cooperative Thought process: Normal thought process present Insight: Good insight present (Psych) Judgement: Good judgement present (Psych) Results AMB Hemoglobin A1c AMB Hemoglobin A1c 9.5 % Last Edit by Isabel Escamilla MA on 03/19/25 16:33 Results Reviewed Results Reviewed: Laboratory Last Values Hgb A1c (Clinic) 9.5 % (4.0-6.0) H 03/19/25 13:52 Coding Level of Care Code Est Pt Level 4 (49476) Diagnoses Type 2 diabetes mellitus with hyperglycemia, without long-term current use of insulin E11.65 Diabetes mellitus type: type 2 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 Diabetes mellitus complication status: with hyperglycemia Erectile dysfunction, unspecified erectile dysfunction type N52.9 Erectile dysfunction type: unspecified Elevated blood pressure reading in office with diagnosis of hypertension I10 Vitamin D deficiency E55.9 Dyslipidemia E78.5 Time Spent (min) 34 Assessment & Plan Assessment & Plan (1) Diabetes mellitus: Code(s): E11.9 - Type 2 diabetes mellitus without complications Category: Medical Qualifiers: Diabetes mellitus type: type 2 Diabetes mellitus snf insulin use: without snf use Diabetes mellitus complication status: with hyperglycemia Qualified Code(s): E11.65 - Type 2 diabetes mellitus with hyperglycemia (2) Erectile dysfunction: Code(s): N52.9 - Male erectile dysfunction, unspecified Category: Medical Qualifiers: Erectile dysfunction type: unspecified Qualified Code(s): N52.9 - Male erectile dysfunction, unspecified (3) Elevated blood pressure reading in office with diagnosis of hypertension: Code(s): I10 - Essential (primary) hypertension Category: Medical (4) Vitamin D deficiency: Code(s): E55.9 - Vitamin D deficiency, unspecified Category: Medical (5) Dyslipidemia: Code(s): E78.5 - Hyperlipidemia, unspecified Category: Medical Plan Plan Patient was informed and verbally consented to the use of an ambient scribe for clinic note documentation during this visit. 1. Uncontrolled Type 2 Diabetes Mellitus The patient's A1c has increased to 9.5% from 7.7% in October, indicating poor glycemic control. This is likely due to medication nonadherence, as the patient has been out of glimepiride for about a month. Refills for glimepiride and Trulicity will be sent to the pharmacy. The patient and his nephew were educated on the importance of requesting refills from the office or pharmacy before running out of medication. Labs will be rechecked in 3 months with a follow-up appointment to review results. 2. Vitamin D Deficiency The patient's lab work shows a low vitamin D level. A prescription for a vitamin D supplement will be sent to his pharmacy, and he was advised it can also be purchased over the counter. 3. Dyslipidemia The patient's HDL cholesterol is low at 29, with a goal of over 40. Since he does not eat fish, a fish oil supplement will be ordered to help increase his HDL level. 4. Erectile Dysfunction The patient requested a refill for his erectile dysfunction medication. A refill for sildenafil (Viagra) will be sent to the pharmacy. Discussion Notes I discussed the patient's lab results with him and his nephew, explaining that his A1c of 9.5% signifies uncontrolled diabetes, which is a significant increase from his 7.7% in October. I identified that he has not been taking his glimepiride for about a month, which is the likely cause of the elevated A1c. I explained that I will send refills for his glimepiride and Trulicity to [facility], his preferred pharmacy. I also informed him about his low vitamin D and low HDL cholesterol, and that I would be prescribing vitamin D and fish oil supplements. I acknowledged his request for a sildenafil refill and have sent that to the pharmacy as well. We scheduled a follow-up appointment in three months and I advised that he should complete his blood work one week prior to that visit so we can review the results together. Patient Instructions - Take all of your diabetes medications as prescribed, including the refilled glimepiride and Trulicity. - Start taking the new Vitamin D supplement. - Start taking the new fish oil supplement to help your good cholesterol. - To avoid running out of medicine in the future, please call our office or ask the pharmacy to request refills for you. - Your prescriptions have been sent to the [facility] in [place]. - You have a follow-up appointment in 3 months. - Please get your blood work done about one week before your next appointment so we have the results to discuss. Orders: Orders Complete Blood Count Auto Diff 3 Months E11.65 - Type 2 diabetes mellitus with hyperglycemia, H54.61 - Unqualified visual loss, right eye, normal vision left eye, I10 - Essential (primary) hypertension, N52.9 - Male erectile dysfunction, unspecified, R25.2 - Cramp and spasm, R53.83 - Other fatigue Comprehensive [place]. Panel Fast 3 Months E11.65 - Type 2 diabetes mellitus with hyperglycemia, H54.61 - Unqualified visual loss, right eye, normal vision left eye, I10 - Essential (primary) hypertension, N52.9 - Male erectile dysfunction, unspecified, R25.2 - Cramp and spasm, R53.83 - Other fatigue Lipid Panel 3 Months E11.65 - Type 2 diabetes mellitus with hyperglycemia, H54.61 - Unqualified visual loss, right eye, normal vision left eye, I10 - Essential (primary) hypertension, N52.9 - Male erectile dysfunction, unspecified, R25.2 - Cramp and spasm, R53.83 - Other fatigue TSH reflex Free T4 3 Months E11.65 - Type 2 diabetes mellitus with hyperglycemia, H54.61 - Unqualified visual loss, right eye, normal vision left eye, I10 - Essential (primary) hypertension, N52.9 - Male erectile dysfunction, unspecified, R25.2 - Cramp and spasm, R53.83 - Other fatigue Vitamin D 25-OH Total 3 Months E11.65 - Type 2 diabetes mellitus with hyperglycemia, H54.61 - Unqualified visual loss, right eye, normal vision left eye, I10 - Essential (primary) hypertension, N52.9 - Male erectile dysfunction, unspecified, R25.2 - Cramp and spasm, R53.83 - Other fatigue AMB Hemoglobin A1c 03/19/25 E11.65 - Type 2 diabetes mellitus with hyperglycemia Hemoglobin A1c 3 Months E11.65 - Type 2 diabetes mellitus with hyperglycemia, H54.61 - Unqualified visual loss, right eye, normal vision left eye, I10 - Essential (primary) hypertension, N52.9 - Male erectile dysfunction, unspecified, R25.2 - Cramp and spasm, R53.83 - Other fatigue UA CC w/rflx Micro + Cult 3 Months E11.65 - Type 2 diabetes mellitus with hyperglycemia, H54.61 - Unqualified visual loss, right eye, normal vision left eye, I10 - Essential (primary) hypertension, N52.9 - Male erectile dysfunction, unspecified, R25.2 - Cramp and spasm, R53.83 - Other fatigue Medications: New cholecalciferol (vitamin D3) 50 mcg PO DAILY 90 caps 3RF omega-3 acid ethyl esters 1 cap PO DAILY 90 caps 3RF Refilled glimepiride 4 mg PO DAILY 90 tabs 3RF dulaglutide (Trulicity) 0.75 mg (0.5 mL) subcut QWEEK 2 mL 0RF losartan 50 mg PO DAILY 30 tabs 3RF sildenafil (Viagra) administer 30 minutes to 4 hours before activity 100 mg PO DAILY PRN 20 tabs 2RF erectile dysfunction metformin ER (Glucophage XR) 1,000 mg (2 x 500 mg) PO DAILY 90 tabs 3RF
[2025-03-19 14:07] VITALS: BP 112/80
== END 2025-03-19 14:21 | disposition home or self-care (01) ==
LOC: HO.HMCH 13:13
DX: E11.65 Type 2 diabetes mellitus with hyperglycemia (principal); N52.9 Male erectile dysfunction, unspecified; I10 Essential (primary) hypertension; E55.9 Vitamin D deficiency, unspecified; E78.5 Hyperlipidemia, unspecified

== ENCOUNTER → 2025-03-19 13:12 | Outpatient (BNVA) | payer OTHER, SELFPAY | DX: E11.65 Type 2 diabetes mellitus with hyperglycemia (principal); N52.9 Male erectile dysfunction, unspecified; I10 Essential (primary) hypertension; E55.9 Vitamin D deficiency, unspecified; E78.5 Hyperlipidemia, unspecified | CPT/HCPCS: 83036; 99212 ==